=== PATIENT | male | born 2000 | race Two or more races ===

== ENCOUNTER 2024-07-20 11:38 | Day surgery (SDC) | payer OTHER, MEDICAID ==
[~2024-07-20] VITALS: Ht 170.2 cm; Wt 72.7 kg
[2024-07-20 11:56] VITALS: BP 114/62; PULSE 78; RESP 14
[2024-07-20] MEDS ORDERED: simethicone 40mg/0.6ml oral drops 30ml ONE (13:07)
[2024-07-20] MEDS ORDERED: propofol inj 20 ML IV ONE ×3 (13:18)
[2024-07-20 13:35] VITALS: BP 111/56; PULSE 71; RESP 14; O2SAT 96
[2024-07-20 13:45] VITALS: BP 138/95; PULSE 68; RESP 14; O2SAT 99
[2024-07-20 13:55] VITALS: BP 135/68; PULSE 66; RESP 16; O2SAT 98
[2024-07-20 14:05] VITALS: BP 134/70; PULSE 68; RESP 16; O2SAT 99
== END 2024-07-20 14:27 | disposition home or self-care (01) ==
LOC: GI LAB 11:38
PROVIDERS: ATTEND Internal Medicine Gastroenterology
DX: K52.9 Noninfective gastroenteritis and colitis, unspecified (principal); K30 Functional dyspepsia; K29.70 Gastritis, unspecified, without bleeding; F12.90 Cannabis use, unspecified, uncomplicated
CPT/HCPCS: 43239; 45380; J2704; J7030; Z7512